=== PATIENT | female | born 1940 | race Caucasian/White ===

== ENCOUNTER 2020-06-08 15:46 | Observation (INO) | payer MEDICARE, OTHER ==
[~2020-06-08] VITALS: Ht 157.6 cm; Wt 73.5 kg
[2020-06-08 16:35] LABS: BASO % 0.2 % (0.0-2.0); EOS # 0.3 (0.0-0.7); EOS % 3.6 % (0-4.0); GRAN # 4.8 (1.4-6.5); GRAN % 57.6 % (42.2-75.2); HEMATOCRIT 39.4 % (37.0-47.0); LYMPH # 2.5 (1.2-3.4); LYMPH % 30.4 % (20.0-51.0); MEAN CELL VOLUME 90 fl (80.0-100.0); MEAN CORPUSCULAR HEMOGLOBIN 30 pg (27.0-31.0); MEAN CORPUSCULAR HGB CONC 33 g/dl (33.0-37.0); MEAN PLATELET VOLUME 10.2 fl (7.4-10.4); MONO # 0.7 (0.1-0.6); PLATELET COUNT 231 K/mm3 (130-400); RED BLOOD COUNT 4.36 M/mm3 (4.10-5.30); REDCELL DISTRIBUTION WIDTH-CV 13.8 % (11.5-14.5)
[2020-06-08 16:36] LABS: PROTHROMBIN TIME 11.5 SECONDS (9.7-12.8)
[2020-06-08 16:39] LABS: PARTIAL THROMBOPLASTIN TIME 32.3 SECONDS (26.0-37.0)
[2020-06-08 17:24] LABS: ALANINE AMINOTRANSFERASE 43 U/L (4-34); ALBUMIN 4.1 gm/dL (3.5-5.0); ALKALINE PHOSPHATASE 142 U/L (50-136); ANION GAP 10 mmol/L (7-16); AST,SGOT 25 U/L (15-37); BILIRUBIN,TOTAL 0.4 mg/dL (0.0-1.0); BLOOD UREA NITROGEN 28 mg/dL (7-17); CALCIUM 9.1 mg/dL (8.4-10.2); CARBON DIOXIDE 23 mmol/L (22-30); CHLORIDE 105 mmol/L (98-107); CREATININE, serum 0.96 (0.52-1.25); GLUCOSE 154 mg/dL (74-106); LIPASE 256 U/L (23-300); POTASSIUM 4.2 mmol/L (3.4-5.0); SODIUM 138 mmol/L (137-145); TOTAL PROTEIN 6.8 gm/dL (6.4-8.2)
[2020-06-08 17:37] LABS: TROPONIN-I < 0.012 ng/mL (0.000-0.035)
[2020-06-08 17:47] LABS: D-DIMER < 200.00 ng/mLDDu (200-230)
[2020-06-08] MEDS ORDERED: OZEMPIC0.25 MG/0. SQ (20:44)
[2020-06-08] MEDS ORDERED: SYNTHROID 0.10.15 MG PO (20:45)
[2020-06-08] MEDS ORDERED: DEXILANT30 MG PO (20:45)
[2020-06-08] MEDS ORDERED: LEXAPRO20 MG PO (20:46)
[2020-06-08] MEDS ORDERED: LIPITOR 40MG TA40 MG PO (20:46)
[2020-06-08] MEDS ORDERED: ASPIRIN E.C. 8181 MG PO (20:47)
[2020-06-08 23:00] VITALS: BP 138/54; PULSE 57; TEMP 98.1
[2020-06-08] MEDS ORDERED: NORVASC 5MG5 MG/TAB PO (23:19)
--- NOTE | 2020-06-08 23:31 | NUR ---
Arrived to medical floor. Assessment complete. Lungs clear. Heart sounds normal. Bowels active x4. Pulses present throughout. No edema noted. INT right wrist without complications. Orientated to medical floor with all questions answered. At 2323 during admission assessment patient started having chest pains. During episode patient immediately sat up in bed pointing to lower sternum area stating patient pain was radiating to her back. VS were taken and stable. EKG complete. Nitro given at 2331. Patient reported relief of chest pain after [address] dose [address] nitro[address] Updated Dr. Deng. NPO after midnight. Troponin to be ordered. EKG reviewed and no changes. Notify if troponin elevated.
[2020-06-08 23:33] VITALS: BP 154/72; PULSE 63
[2020-06-08 23:36] VITALS: BP 125/56; PULSE 65
--- NOTE | 2020-06-09 00:08 | NUR ---
Reported headache after nitro. Obtained order for tylenol. Refused at this time. Reports "want to try to sleep, if headache wont go away, I will call." Will continue to monitor.
[2020-06-09 00:21] VITALS: BP 132/55; PULSE 64; TEMP 97.2
--- NOTE | 2020-06-09 04:22 | NUR ---
Resting in bed. Denies needs. Call light in reach.
[2020-06-09 05:00] VITALS: BP 141/55; PULSE 63; TEMP 97.9
--- NOTE | 2020-06-09 06:33 | NUR ---
Patient had x1 episode of chest pain with nitro given. Otherwise uneventful night. Resting in bed this AM. Call light in reach.
--- NOTE | 2020-06-09 07:06 | NUR ---
Report given to MORIAH Ortiz
[2020-06-09 08:03] VITALS: BP 137/52; PULSE 68; TEMP 98.1
--- NOTE | 2020-06-09 08:40 | NUR ---
Pt awake and alert upon entry, talkative, no C/O pain at this time. Shift assesssments complete, left Pt call light in reach, bed in lowest position.
[2020-06-09 12:00] VITALS: BP 118/55; PULSE 73; TEMP 98.4
--- NOTE | 2020-06-09 14:12 | NUR ---
Plan to return home with DTR. SW met with patient for assessment. Patient reports that she resides with her DTR Crystal Fonseca . Patient reports that her pcp is Dr. Aldana with last appointment 1 month ago. Patient reports that her POA is her DTR. Patient reports that she obtains RX from [facility] in . Patient denies the use of any DME or skilled services. Patient indicated that she is emotionally upset about care she recieved in ED, Offered talking to Guide Setter to support. Notified house of concerns, offered additional supports. Will continue to follow.
[2020-06-09 16:24] VITALS: BP 114/51; PULSE 70; TEMP 97.6
--- NOTE | 2020-06-09 18:39 | NUR ---
Pt rested in the room today, no C/O pain throughout the day. Pt talkative. no other issues noted. VS have remained stable.
[2020-06-09 20:00] VITALS: BP 119/46; PULSE 70; TEMP 96.9
[2020-06-10] VITALS (12 sets, daily range): BP systolic 116–151; BP diastolic 50–71; PULSE 66–103; TEMP 97.2–97.8
--- NOTE | 2020-06-10 01:10 | NUR ---
Patient pleasant, alert and oriented. Patient laying in bed upon enter the room. Patient denies any chest pain or discomfort. Denies SOB or dyspnea. Appears comfortable. No acute distress noted. Scheduled meds given per order. Informed patient regarding Echo Nita procedure tomorrow and NPO starting midnight. Patient verbalized understanding. Call light within reach. Patient denies any needs at this time.
--- NOTE | 2020-06-10 05:51 | NUR ---
NPO maintained from midnight. Reviewed Echo and Lexiscan procedure and consent signed by patient. Patient laying in bed denies any pain or discomfort at this time. No acute distress noted. Call light within reach.
[2020-06-10 07:39] LABS: BASO % 0.3 % (0.0-2.0); EOS # 0.2 (0.0-0.7); EOS % 2.8 % (0-4.0); GRAN # 3.7 (1.4-6.5); GRAN % 59.4 % (42.2-75.2); HEMATOCRIT 41.4 % (37.0-47.0); HEMOGLOBIN 13.6 g/dl (12.5-16.0); LYMPH # 1.7 (1.2-3.4); LYMPH % 28.2 % (20.0-51.0); MEAN CELL VOLUME 90 fl (80.0-100.0); MEAN CORPUSCULAR HEMOGLOBIN 30 pg (27.0-31.0); MEAN CORPUSCULAR HGB CONC 33 g/dl (33.0-37.0); MEAN PLATELET VOLUME 10.6 fl (7.4-10.4); MONO # 0.6 (0.1-0.6); MONO % 9.1 % (1.7-9.3); PLATELET COUNT 239 K/mm3 (130-400); RED BLOOD COUNT 4.58 M/mm3 (4.10-5.30); REDCELL DISTRIBUTION WIDTH-CV 13.8 % (11.5-14.5)
[2020-06-10 07:54] LABS: CALCIUM 8.6 mg/dL (8.4-10.2); CREATININE, serum 0.94 (0.52-1.25); POTASSIUM 4.1 mmol/L (3.4-5.0)
--- NOTE | 2020-06-10 10:08 | NUR ---
Patient back from [facility] by wheelchair.
[2020-06-10] MEDS ORDERED: DEXILANT60 MG PO (13:18)
--- NOTE | 2020-06-10 14:17 | NUR ---
Initial visit; Patient thanked Casing Crew Pusher for looking in on her and requested that Casing Crew Pusher keep all the wonderful nurses in Casing Crew Pusher's prayers. Casing Crew Pusher stated that she would also keep Lupe in her prayers. Lupe agreed.
--- NOTE | 2020-06-10 15:20 | NUR ---
Patient has done well throughout the day. Nita scan this AM. Has done well since lexiscan. Tolerating diet without difficulties. Patient up ambulating in room with stand by assist. Discharge education given to patient at this time. Educated on follow up appointment with cardiology, patient states she has a follow up scheduled next week with her PCP. Educated on medication changes. INT to RW discontinued, cathter tip intact. Denies further needs at this time. Patient ambulated out with medical staff.
== END 2020-06-10 15:20 | disposition home or self-care (01) ==
LOC: COL.ER 15:46 → MEDICAL 20:19
PROVIDERS: Emergency Medicine; Physician Assistant; ADMIT Student in an Organized Health Care Education/Training Program
DX: R07.89 Other chest pain (principal); I10 Essential (primary) hypertension; E11.9 Type 2 diabetes mellitus without complications; K21.9 Gastro-esophageal reflux disease without esophagitis; I69.353 Hemiplegia and hemiparesis following cerebral infarction affecting right non-dominant side; E03.9 Hypothyroidism, unspecified; M19.90 Unspecified osteoarthritis, unspecified site; K44.9 Diaphragmatic hernia without obstruction or gangrene; J45.909 Unspecified asthma, uncomplicated; I44.0 Atrioventricular block, first degree; Z79.890 Hormone replacement therapy; Z20.828 Contact with and (suspected) exposure to other viral communicable diseases; Z88.0 Allergy status to penicillin; Z88.2 Allergy status to sulfonamides; Z79.82 Long term (current) use of aspirin; Z79.899 Other long term (current) drug therapy; Z79.84 Long term (current) use of oral hypoglycemic drugs; Z87.891 Personal history of nicotine dependence; Z82.49 Family history of ischemic heart disease and other diseases of the circulatory system
CPT/HCPCS: 99232-AI; A9500; G0378; J1650; J2405; J2785

== ENCOUNTER 2021-12-05 13:03 | Observation (INO) | payer MEDICARE, OTHER ==
[~2021-12-05] VITALS: Ht 157.5 cm; Wt 60.2 kg
[~2021-12-05 13:03] MED LIST: ASPIRIN E.C. 8181 MG PO; CARAFATE 1GM1 G PO; DEXILANT30 MG PO; DEXILANT60 MG PO; FIRST-MOUTHWASH1 KIT PO; LEXAPRO20 MG PO; LIPITOR 40MG TA40 MG PO; NORCO 325 MG-51 TAB PO; NORVASC 5MG5 MG/TAB PO; OZEMPIC0.25 MG/0. SQ; PEPCID 20MG TAB20 MG PO; PROTONIX 40MG T40 MG PO; REGLAN 10MG10 MG/TAB PO; SYNTHROID 0.10.15 MG PO; TYLENOL 325MG325 MG PO; VOLTAREN 75 DR75 MG PO; XANAX .25M0.25 MG/TA PO; ZOFRAN ODT4 MG PO; ZOVIRAX400 MG PO
[2021-12-05 13:35] LABS: BASO % 0.4 % (0.0-2.0); EOS # 0.1 K/mm3 (0.0-0.7); GRAN # 2.9 K/mm3 (1.4-6.5); GRAN % 51.7 % (42.2-75.2); HEMOGLOBIN 12.4 g/dl (12.5-16.0); LYMPH % 36.3 % (20.0-51.0); MEAN CELL VOLUME 93 fl (80.0-100.0); MEAN CORPUSCULAR HEMOGLOBIN 32 pg (27-31); MEAN CORPUSCULAR HGB CONC 34 g/dl (33.0-37.0); MEAN PLATELET VOLUME 9.4 fl (7.4-10.4); MONO # 0.5 K/mm3 (0.1-0.6); MONO % 9.4 % (1.7-9.3); PLATELET COUNT 234 K/mm3 (130-400); REDCELL DISTRIBUTION WIDTH-CV 12.8 % (11.5-14.5)
[2021-12-05 13:36] LABS: HEMATOCRIT 36.4 % (37.0-47.0)
[2021-12-05 13:53] LABS: ALANINE AMINOTRANSFERASE 9 U/L (0-55); ALBUMIN 3.6 gm/dL (3.4-4.8); ALKALINE PHOSPHATASE 96 U/L (40-150); ANION GAP 11 mmol/L (7-16); AST,SGOT 16 U/L (5-34); BILIRUBIN,TOTAL 0.4 mg/dL (0.2-1.2); BLOOD UREA NITROGEN 18 mg/dL (10-20); CALCIUM 8.9 mg/dL (8.4-10.2); CARBON DIOXIDE 24 mmol/L (23-31); CHLORIDE 106 mmol/L (98-107); GLUCOSE 96 mg/dL (70-99); MAGNESIUM 1.8 mg/dL (1.6-2.6); PHOSPHOROUS 3.1 mg/dL (2.3-4.7); POTASSIUM 4.1 mmol/L (3.5-4.5); SODIUM 141 mmol/L (136-145); TOTAL PROTEIN 6.5 gm/dL (6.2-8.1)
[2021-12-05 14:06] LABS: TROPONIN-I < 0.010 ng/mL (0.00-0.033)
[2021-12-05 14:34] LABS: COLLECTION METHOD CLEAN CATCH
[2021-12-05 14:44] LABS: PH 7 (5-8); SQUAMOUS EPITHELIAL 0-2 /hpf (0-10); URINE APPEARANCE Clear (CLEAR/HAZY); URINE BACTERIA None Seen /hpf (NONE SEEN); URINE BILIRUBIN Negative (NEGATIVE); URINE BLOOD Negative (NEGATIVE); URINE COLOR Straw (YELLOW); URINE GLUCOSE Negative (NEGATIVE); URINE KETONE Negative (NEGATIVE); URINE LEUKOCYTE ESTERASE Negative (NEGATIVE); URINE NITRATE Negative (NEGATIVE); URINE PROTEIN(semi-quant) Negative (NEGATIVE); URINE RBC 0-2 /hpf (0-2); URINE UROBILINOGEN Negative (NEGATIVE); URINE WBC 0-2 /hpf (0-2)
--- NOTE | 2021-12-05 19:24 | NUR ---
PT ARRIVED TO ROOM @ 1808 FROM ED. PT IS A&O X3, FALL RISK REVIEWED, PT DEMONSTRATES UNDERSTANDING. SWALLOW EVAL COMPLETED ET PT SWALLOWS THIN LIQUIDS EASILY, DENIES ANY PROBLEMS. Sonia ROONEY CALLED TO CLARIFY DIET ORDER, PT IS CHANGED FROM NPO TO A CARB CONTROL DIET.
[2021-12-05] MEDS ORDERED: ARICEPT10 MG PO (20:01)
[2021-12-05] MEDS ORDERED: PLAVIX 75MG TAB75 MG PO (20:01)
[2021-12-05] MEDS ORDERED: LYRICA 75MG CAP75 MG PO (20:01)
--- NOTE | 2021-12-05 20:09 | NUR ---
PT IN BED, IS ALERT AND ORIENTED X4. ADMISSION QUESTIONS AND MED REC COMPLETED. PT HAS INT TO RT WRIST AND LEFT AC. REPORTS RT SIDE WEAKNESS FROM OLD CVA WELL SOME SLURRED SPEECH FROM OLD CVA. EDUCATED ON FALL RISK, BED ALARM ON. REPORTS EATING ALL HER DINNER WITHOUT DIFFICULTY.
[2021-12-05 20:17] VITALS: BP 163/57; PULSE 56; TEMP 97.4
[2021-12-05 20:34] LABS: THYROID STIMULATING HORMONE 5.394 uIU/mL (0.350-4.940)
--- NOTE | 2021-12-05 22:07 | NUR ---
HS MEDS GIVEN INCLUDING XANAX FOR SLEEP. FLUSHED INT TO RT WRIST AND LAC WITHOUT PROBLEM. DENIES PAIN AT THIS TIME.
[2021-12-05 23:46] VITALS: BP 125/44; PULSE 59; TEMP 98.9
[2021-12-06 04:06] VITALS: BP 131/50; PULSE 61; TEMP 98.6
--- NOTE | 2021-12-06 04:59 | NUR ---
PT USING CALL LIGHT EFFECTIVELY, HAS NOT BEEN IMPULSIVE. BED ALARM ON.
--- NOTE | 2021-12-06 07:06 | NUR ---
MEDICATED WITH TYLENOL 325MG PO FOR HEADACHE.
--- NOTE | 2021-12-06 08:00 | NUR ---
PATIENT IS A&O. VSS. C/O MILD RICHARDS. [facility] GAVE PRN TYLENOL BEFORE SHIFT CHANGE. PATIENT HAS HX OF STROKE. NO SLURRED SPEECH OR DIZZINESS REPORTED OR OBSERVED THIS AM. PATIENT DOES REPORT SHE STILL FEELS A LITTLE WEAK. GAIT IS STEADY. NO C/O N/V. RIGHT WRIST AND LEFT AC IV'S TO INT. AM MEDS GIVEN. HEAD TO TOE ASSESSMENT COMPLETED, SEE CHARTING. NO OTHER NEEDS. CALL LIGHT IN REACH. PATIENT TALKING WITH DAUGHTER ON PHONE.
[2021-12-06 08:10] VITALS: BP 142/57; PULSE 68; TEMP 98.3
[2021-12-06 08:33] LABS: BASO % 0.2 % (0.0-2.0); EOS # 0.2 K/mm3 (0.0-0.7); EOS % 3.8 % (0.0-4.0); GRAN # 2.7 K/mm3 (1.4-6.5); GRAN % 56.7 % (42.2-75.2); LYMPH # 1.4 K/mm3 (1.2-3.4); LYMPH % 30.6 % (20.0-51.0); MEAN CELL VOLUME 94 fl (80.0-100.0); MEAN CORPUSCULAR HEMOGLOBIN 32 pg (27-31); MEAN CORPUSCULAR HGB CONC 34 g/dl (33.0-37.0); MEAN PLATELET VOLUME 9.9 fl (7.4-10.4); MONO # 0.4 K/mm3 (0.1-0.6); MONO % 8.5 % (1.7-9.3); PLATELET COUNT 226 K/mm3 (130-400); RED BLOOD COUNT 3.75 M/mm3 (4.10-5.30); REDCELL DISTRIBUTION WIDTH-CV 12.9 % (11.5-14.5)
[2021-12-06 08:49] LABS: HEMATOCRIT 35.1 % (37.0-47.0)
[2021-12-06 08:53] LABS: CALCIUM 8.6 mg/dL (8.4-10.2); CREATININE, serum 0.74 mg/dL (0.57-1.11); MAGNESIUM 1.8 mg/dL (1.6-2.6); POTASSIUM 3.8 mmol/L (3.5-4.5)
--- NOTE | 2021-12-06 10:15 | NUR ---
DR.KUMAR DOMINGO. PATIENT C/O RICHARDS EVEN AFTER TYLENOL, SEE NEW ORDERS FOR LYRICA.
[2021-12-06 12:20] VITALS: BP 150/38; PULSE 88; TEMP 98.8
--- NOTE | 2021-12-06 14:20 | NUR ---
PATIENT WALKING THE HALLS AND TOLERATING ACTIVITY WELL.
[2021-12-06 16:25] VITALS: BP 149/51; PULSE 89; TEMP 98
[2021-12-06 19:32] VITALS: BP 126/45; PULSE 66; TEMP 98.6
--- NOTE | 2021-12-06 20:44 | NUR ---
PT TAKES HS MEDS INCLUDING XANAX. IS ALERT AND ORIENTED X4. HAS INT TO RT WRIST. DC'D INT FROM LEFT AC, ANGIOCATH INTACT. ASSISTED TO BATHROOM WITH CANE, STEADY GAIT, VOIDS AND BACK TO BED. BED ALARM ON.
[2021-12-06 23:22] VITALS: BP 121/56; PULSE 54; TEMP 97.5
[2021-12-07 03:54] VITALS: BP 110/56; PULSE 63; TEMP 97.7
--- NOTE | 2021-12-07 04:00 | NUR ---
PT HAS RESTED WELL. DENIES PAIN.
--- NOTE | 2021-12-07 05:45 | NUR ---
PT COMPLAINS OF HEADACHE, TYLENOL 325MG PO WITH SCHEDULED AM MED. IV ANTIBIOTIC INFUSING TO RT WRIST INT, PT REPORTS SOME BURNING, ICE PACK APPLIED TO SITE. ATTEMPTED TO START NEW SITE TO LEFT ARM WITHOUT SUCCESS. WILL MONITOR SITE FOR CHANGES.
[2021-12-07 07:47] LABS: BASO % 0.5 % (0.0-2.0); EOS # 0.2 K/mm3 (0.0-0.7); EOS % 3.8 % (0.0-4.0); GRAN # 2.3 K/mm3 (1.4-6.5); GRAN % 54.9 % (42.2-75.2); HEMATOCRIT 34.9 % (37.0-47.0); HEMOGLOBIN 11.6 g/dl (12.5-16.0); LYMPH # 1.4 K/mm3 (1.2-3.4); LYMPH % 32.7 % (20.0-51.0); MEAN CELL VOLUME 95 fl (80.0-100.0); MEAN CORPUSCULAR HEMOGLOBIN 31 pg (27-31); MEAN CORPUSCULAR HGB CONC 33 g/dl (33.0-37.0); MEAN PLATELET VOLUME 10.1 fl (7.4-10.4); MONO # 0.3 K/mm3 (0.1-0.6); MONO % 7.9 % (1.7-9.3); PLATELET COUNT 201 K/mm3 (130-400); RED BLOOD COUNT 3.69 M/mm3 (4.10-5.30); REDCELL DISTRIBUTION WIDTH-CV 13.1 % (11.5-14.5)
--- NOTE | 2021-12-07 08:00 | NUR ---
PATIENT IS A&O. VSS. C/O RICHARDS AND WAS GIVEN PRN TYLENOL BY WOOD HANDLER BEFORE SHIFT CHANGE. PATIENT REPORTS RICHARDS IS BETTER BUT STILL THERE. GAVE SCHEDULED LYRICA WELL. PATIENT ALSO C/O ACHE IN LEFT KNEE. NOTED OLD BRUISE TO LEFT KNEE THAT IS YELLOW IN APPEARANCE. APPLIED WARM PACK TO LLE. PATIENT EXPRESSED CONCERN ABOUT GOING HOME TODAY BEFORE HAVING HER ECHO & CAROTIDS DONE. SHE BECAME TEARFUL WHILE TALKING ABOUT IT. NURSING DIFFERED TO PROVIDER BUT ASSURED HER WE WOULD TALK TO THE PROVIDER TODAY ABOUT HER CONCERNS. NO C/O N/V. BREAKFAST TRAY ORDERED AND AM MEDS GIVEN. RIGHT WRIST IV TO INT. VOIDING SUFFICIENT AMOUNTS. HEAD TO TOE ASSESSMENT COMPLETE. PT/OT/ST CONSULTED. NO OTHER NEEDS AT THIS TIME. CALL LIGHT IN REACH.
[2021-12-07 08:06] LABS: CALCIUM 8.3 mg/dL (8.4-10.2); CREATININE, serum 0.75 mg/dL (0.57-1.11); MAGNESIUM 1.7 mg/dL (1.6-2.6)
[2021-12-07 08:10] VITALS: BP 144/50; PULSE 64; TEMP 98.9
[2021-12-07 11:15] VITALS: BP 149/55; PULSE 59; TEMP 98
--- NOTE | 2021-12-07 15:18 | NUR ---
YECENIA met with pt to complete intake. Pt lives at home with dtrs family. Pt is independent on all ADLs and uses a cane. Pt reports she was doing PT at [facility]. PT NK is her daughter, Nena [phone]. PCP is Patel Avalos and gets medications from [facility] and has no trouble with cost. DPOA-HC: daughter, no paperwork in chart. Pt reports Dr. Steinberg was rude to her wanted her to DC today. She was not ready to DC until all test results came back. MRI machine down. Pt will DC 12/08 now, upon MRI result. YECENIA informed Sherry MAJOR about incident. DC: home w/family assist.
[2021-12-07 15:59] VITALS: BP 155/54; PULSE 65; TEMP 98
--- NOTE | 2021-12-07 18:11 | NUR ---
Patient resting in bed, A&Ox4. VSS. IV CDI, fluids infusing. Complaints of discomfort with infusion, rate decreased. No other complaints reported. Call light within reach
[2021-12-07 19:50] VITALS: BP 161/58; PULSE 65; TEMP 98.4
--- NOTE | 2021-12-07 20:00 | NUR ---
REMOVED PTS INT D/T PAIN. IV ANTIBIOTIC DC'D AND WILL GET PO STARTING TOMORROW PER NAVEEN ROONEY. PT IS ALERT AND ORIENTED X4. DENIES PAIN AT THIS TIME. HOPING TO GO HOME TOMORROW.
[2021-12-07 23:30] VITALS: BP 140/52; PULSE 60; TEMP 98.4
[2021-12-08 04:14] VITALS: BP 153/56; PULSE 56; TEMP 98.2
--- NOTE | 2021-12-08 06:10 | NUR ---
TYLENOL 325MG PO FOR HEADACHE THIS AM WITH SCHEDULED SYNTHROID.
[2021-12-08 06:49] LABS: BASO % 0.2 % (0.0-2.0); EOS # 0.2 K/mm3 (0.0-0.7); EOS % 4.1 % (0.0-4.0); GRAN # 2.6 K/mm3 (1.4-6.5); GRAN % 53.2 % (42.2-75.2); HEMATOCRIT 37.7 % (37.0-47.0); HEMOGLOBIN 12.5 g/dl (12.5-16.0); LYMPH # 1.6 K/mm3 (1.2-3.4); LYMPH % 32.8 % (20.0-51.0); MEAN CELL VOLUME 95 fl (80.0-100.0); MEAN CORPUSCULAR HEMOGLOBIN 32 pg (27-31); MEAN CORPUSCULAR HGB CONC 33 g/dl (33.0-37.0); MEAN PLATELET VOLUME 10.1 fl (7.4-10.4); MONO # 0.5 K/mm3 (0.1-0.6); MONO % 9.5 % (1.7-9.3); PLATELET COUNT 206 K/mm3 (130-400); RED BLOOD COUNT 3.97 M/mm3 (4.10-5.30); REDCELL DISTRIBUTION WIDTH-CV 13.1 % (11.5-14.5)
[2021-12-08 07:08] LABS: CALCIUM 8.4 mg/dL (8.4-10.2); CREATININE, serum 0.7 mg/dL (0.57-1.11); MAGNESIUM 1.8 mg/dL (1.6-2.6); POTASSIUM 3.8 mmol/L (3.5-4.5)
--- NOTE | 2021-12-08 08:00 | NUR ---
PATIENT IS A&O. VSS. NO COMPLAINTS THIS AM. BREAKFAST TRAY ORDERED AND AM MEDS GIVEN. RIGHT WRIST IV TO INT. VOIDING SUFFICIENT AMOUNTS. HEAD TO TOE ASSESSMENT COMPLETE. PT/OT/ST CONSULTED. PATIENT HAS SEVERAL TESTS SCHEDULED FOR TODAY. NO OTHER NEEDS AT THIS TIME. CALL LIGHT IN REACH.
[2021-12-08 08:01] VITALS: BP 155/58; PULSE 54; TEMP 97.7
--- NOTE | 2021-12-08 08:15 | NUR ---
PATIENT GETTING ECHO AT BEDSIDE.
--- NOTE | 2021-12-08 10:00 | NUR ---
PATIENT BACK IN ROOM FROM MRI. OT NOW AT BEDSIDE.
[2021-12-08] MEDS ORDERED: MONODOX100 PO (11:22)
[2021-12-08 11:51] VITALS: BP 121/49; PULSE 62; TEMP 97.4
--- NOTE | 2021-12-08 14:37 | NUR ---
Several visit attempts; Survey Research Manager let card informing patient about the availability of Spiritual Care at [facility] and offered God's blessings to Lupe.
--- NOTE | 2021-12-08 14:45 | NUR ---
PATIENT'S RIDE IS NOW HERE. GAVE DISCHARGE INSTRUCTIONS, E-SCRIPT SENT, AND DISCUSSED F/U APT. ANSWERED QUESTIONS/CONCERNS. NO IV SITE. PATIENT IS DRESSED, PACKED AND ESCORTED OUT VIA WC TO PERSONAL VEHICLE WHERE HER DAUGHTER IS WAITING. PATIENT DISCHARGED.
== END 2021-12-08 14:45 | disposition home or self-care (01) ==
LOC: COL.ER 13:03 → SURG 16:21
PROVIDERS: Emergency Medicine; ADMIT Family Medicine
DX: I69.328 Other speech and language deficits following cerebral infarction (principal); J32.0 Chronic maxillary sinusitis; I10 Essential (primary) hypertension; E11.9 Type 2 diabetes mellitus without complications; K21.9 Gastro-esophageal reflux disease without esophagitis; I69.354 Hemiplegia and hemiparesis following cerebral infarction affecting left non-dominant side; M19.90 Unspecified osteoarthritis, unspecified site; E03.9 Hypothyroidism, unspecified; Z79.899 Other long term (current) drug therapy; I08.3 Combined rheumatic disorders of mitral, aortic and tricuspid valves; Z87.891 Personal history of nicotine dependence
CPT/HCPCS: 99232-AI; G0378; J1650; Q9967